=== PATIENT | female | born 1985 | race Caucasian/White ===

== ENCOUNTER 2025-07-14 18:30 | Emergency (ER) | payer OTHER, SELFPAY ==
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
[2025-07-14 18:30] VITALS: BP 116/75; PULSE 80; RESP 16; TEMP 36.6; O2SAT 99
[2025-07-14] MEDS: KETOROLAC (*BKC) 60 MG/2 ML VIAL IM (19:16)
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
[2025-07-14 20:35] VITALS: BP 122/70; PULSE 74; RESP 18; O2SAT 99
== END 2025-07-14 20:35 | disposition home or self-care (01) ==
PROVIDERS: Emergency Provider Emergency Medicine; Referring Provider Internal Medicine
DX: S23.41XA Sprain of ribs, initial encounter (principal); V49.50XA Passenger injured in collision with unspecified motor vehicles in traffic accident, initial encounter
CPT/HCPCS: 71100; 96372; 99283; J1885